=== PATIENT | male | born 1965 | race Caucasian/White ===

== ENCOUNTER 2016-05-05 11:09 | Emergency (ER) | payer OTHER ==
--- NOTE | 2016-05-05 12:21 | ED UPPER/LOWER EXTREMITY COMPL ---
History of Present Illness General Chief Complaint: Shoulder Injury Stated Complaint: ? RIGHT SHOULDER DISLOCATION, WORK RELATED INJURY Source: patient Exam Limitations: no limitations Vital Signs & Intake/Output Vital Signs & Intake/Output Vital Signs Date Time Temp Pulse Resp B/P Pulse O2 O2 Flow FiO2 Ox Delivery Rate 05/05 1116 78 22 144/87 98 Allergies Coded Allergies: Sulfa (Sulfonamide Antibiotics) (RASH 05/05/16) Reconcile Medications Tramadol HCl 50 MG TABLET 1 TAB PO BIDP PRN pain Triage Note: SENT BY [facility] FOR RT SHOUDER DISLOCATION, RT ARM IN SLING FROM URGENT CARE. Triage Nurses Notes Reviewed? yes HPI: This patient is a 51-year-old male who was sent in at the request of a walk-in clinic for evaluation of right shoulder pain and possible dislocation. The patient reported that he was at work using a rolling cart when he slipped and his arm went underneath him. He reported that he felt something pop. He reported that he is having 7-10 pain in his shoulder worse with movement. He reported that he is having difficulty lifting his arm at the shoulder. He denied any numbness or tingling in his extremities. No elbow or wrist pain. The patient denied any neck or head pain. He did not hit his head or lose consciousness. The arm feels better when his arm is held still. It has been constant since onset. Past History Travel History Traveled to [place] past 21 day No Medical History Any Pertinent Medical History? see below for history Neurological: NONE EENT: NONE Cardiovascular: hypertension Respiratory: NONE Gastrointestinal: NONE Hepatic: NONE Renal: NONE Musculoskeletal: NONE Psychiatric: NONE Endocrine: NONE Surgical History Surgical History: non-contributory Psychosocial History What is your primary language Japanese Tobacco Use: Never used Family History Hx Contributory? No Review of Systems Review of Systems Constitutional: Reports: no symptoms. EENTM: Reports: no symptoms. Respiratory: Reports: no symptoms. Cardiovascular: Reports: no symptoms. Gastrointestinal/Abdominal: Reports: no symptoms. Musculoskeletal: Reports: see HPI. Skin: Reports: no symptoms. Neurological/Psychological: Reports: no symptoms. All Other Systems: Reviewed and Negative Physical Exam Physical Exam General Appearance: well developed/nourished, no apparent distress, alert, awake Comments: Well-developed well-nourished person in no acute distress HEENT: Normal EENT exam, normocephalic Neck: Supple. Full range of motion. No midline tenderness Back: Normal gait Respiratory: No respiratory distress. Speaking in full sentences Right upper Extremity: No effusions overlying erythema or ecchymosis the joint spaces. No skin breakdown. No bony or muscular deformities noted. Full passive range of motion at the shoulder, elbow, and wrist. Decreased active range of motion of the shoulder with abduction. Full active range of motion of the elbow and wrist. Tenderness to palpation over the posterior aspect of the shoulder. Radial and brachial pulses 2+ and strong. Capillary refill less than 2 seconds Neuro: Alert oriented x3, cranial nerves II through XII grossly intact. Skin: No appreciable rash on exposed skin, skin is warm and dry. Psych: Mood and affect is normal Progress Differential Diagnosis: arterial insufficiency, cellulitis, compartment syndrome , contusion, dislocation, DVT, fracture, gout, sprain, tendon injury Plan of Care: Current Medications Sig/Leobardo Start time Last Medication Dose Stop Time Status Admin Cyclobenzaprine HCl 10 MG ONCE ONE 05/05 1245 UNVr (Flexeril 10MG Tab) 05/05 1246 Tramadol HCl 50 MG ONCE ONE 05/05 1245 UNVr (Ultram) 05/05 1246 Diagnostic Imaging: Viewed by Me: Radiology Read. Discussed w/RAD: Radiology Read. Radiology Impression: PATIENT: MARCELINO AMBRIZ PRESENT AGE: 51 PATIENT ACCOUNT NO: [id number] : 63 LOCATION: [facility] ORDERING PHYSICIAN: NEVILLE LARA PA-C SERVICE DATE: 05/05/161140 EXAM TYPE: RAD - XRY-SHOULDER COMPLETE-RIGHT EXAMINATION: XR SHOULDER, RIGHT CLINICAL INFORMATION : Pain. COMPARISON: None. TECHNIQUE: 4 view right shoulder FINDINGS: There is no evidence of acute fracture or dislocation of the right shoulder. No calcific tendinitis. No significant degenerative change of the glenohumeral joint. IMPRESSION: No significant right shoulder abnormality identified. DICTATED BY: LING JOYNER MD DATE/TIME DICTATED:05/05/161213 MAIL DELIVERER:LALO DATE/TIME TRANSCRIBED:05/05/161213 CONFIDENTIAL, DO NOT COPY WITHOUT APPROPRIATE AUTHORIZATION. <Electronically signed in Other Vendor System> SIGNED BY: LING JOYNER MD 05/05/16 1220 Departure Departure Disposition: HOME OR SELF CARE Condition: Stable Clinical Impression Primary Impression: Shoulder injury Qualifiers: Encounter type: initial encounter Laterality: right Qualified Code: S49.91XA - Unspecified injury of right shoulder and upper arm, initial encounter Referrals: SUDEEP BLEVINS,RHONDA (PCP/Family) FLACO BLEVINS,ROCIO Additional Instructions: Please keep your right arm in the sling provided to here in the emergency Department. You may apply ice or heat the affected area as needed. You may take [id number] ibuprofen for inflammation. Take medication for pain as prescribed. Please call to make an appointment with either your orthopedic physician or the orthopedic physician whose information has been provided to you in this packet for further evaluation and management; you may need an MRI to rule out any further injury. Return for any worsening symptoms or concerns. Departure Forms: Customer [employer] Employee Industrial Accident General Discharge Information Prescriptions: Current Visit Scripts Tramadol HCl 1 TAB PO BIDP PRN pain #6 TAB
[2016-05-05] MEDS ORDERED: TRAMADOL HCL50 M1 PO (12:39)
[2016-05-05 12:47] VITALS: BP 154/83
== END 2016-05-05 12:51 ==
LOC: ERH 11:09
DX: S49.91XA Unspecified injury of right shoulder and upper arm, initial encounter (principal); X58.XXXA Exposure to other specified factors, initial encounter
CPT/HCPCS: 73030-RT